=== PATIENT | female | born 1980 | race Caucasian/White ===

== ENCOUNTER 2018-09-01 12:57 | Emergency (ER) | payer OTHER ==
[~2018-09-01] VITALS: Ht 162.6 cm; Wt 96.2 kg
[2018-09-01] MEDS ORDERED: BOTOX100 UNIT IM (13:16)
[2018-09-01] MEDS ORDERED: AIMOVIG AU70 MG/1 ML SUBQ (13:17)
[2018-09-01 13:48] LABS: ABSOLUTE BASOPHILS 0.1 thou/uL (0.0-0.2); ABSOLUTE EOSINOPHILS 0.1 thou/uL (0.0-0.7); ABSOLUTE MONOCYTES 0.3 thou/uL (0.0-1.2); ABSOLUTE NEUTROPHILS 3.9 thou/uL (1.6-8.1); BASOPHILS 0.9 %; EOSINOPHILS 1.8 %; HEMOGLOBIN 13.5 gm/dL (12.0-15.0); LYMPHOCYTES 31.1 %; MCHC 33.7 g/dL (28.0-37.0); MCV 86.1 fL (80.0-100.0); MONOCYTES 4.4 %; MPV 7.5 fl. (7.2-11.1); NUCLEATED RBCS 0 /100WBC; PLATELET COUNT* 302 thou/uL (150-400); POLYS 61.8 %; RBC 4.65 mil/uL (4.20-5.00); RDW-CV 13.5 % (10.5-14.5); WBC 6.4 thou/uL (4.0-11.0)
[2018-09-01 14:00] LABS: APTT 27.3 Seconds (25.0-31.3)
[2018-09-01 14:03] LABS: CALCIUM 9.1 mg/dL (8.5-10.1); CREATININE 0.7 mg/dL (0.6-1.3)
[2018-09-01] MEDS ORDERED: MOBIC15 MG PO (15:30)
[2018-09-01 15:48] VITALS: BP 132/85
== END 2018-09-01 15:50 | disposition home or self-care (01) ==
LOC: M.ERS 12:57
PROVIDERS: Nurse Practitioner Psychiatric/Mental Health
DX: S80.01XA Contusion of right knee, initial encounter (principal); S70.11XA Contusion of right thigh, initial encounter; G43.909 Migraine, unspecified, not intractable, without status migrainosus; Z90.89 Acquired absence of other organs; X58.XXXA Exposure to other specified factors, initial encounter; Y92.89 Other specified places as the place of occurrence of the external cause; Y93.89 Activity, other specified; Y99.8 Other external cause status

== ENCOUNTER 2019-08-16 16:50 | Emergency (ER) | payer OTHER ==
[~2019-08-16] VITALS: Ht 162.6 cm; Wt 104.3 kg
[~2019-08-16 16:50] MED LIST: AIMOVIG AU70 MG/1 ML SUBQ; BOTOX100 UNIT IM; MOBIC15 MG PO
[2019-08-16] MEDS ORDERED: IMITREX4 MG/0.5 M (17:00)
[2019-08-16] MEDS ORDERED: IMITREX 25 MG T25 M1 PO (17:00)
[2019-08-16] MEDS ORDERED: NORCO 5-325 TA1 EAC1 PO (18:10)
[2019-08-16 18:28] VITALS: BP 114/75
== END 2019-08-16 18:29 | disposition home or self-care (01) ==
LOC: M.ERS 16:50
DX: S93.492A Sprain of other ligament of left ankle, initial encounter (principal); G43.909 Migraine, unspecified, not intractable, without status migrainosus; Z90.49 Acquired absence of other specified parts of digestive tract; Z98.890 Other specified postprocedural states; Z88.2 Allergy status to sulfonamides; X50.0XXA Overexertion from strenuous movement or load, initial encounter; Y93.89 Activity, other specified; Y92.89 Other specified places as the place of occurrence of the external cause; Y99.8 Other external cause status

== ENCOUNTER 2019-09-09 12:28 | Emergency (ER) | payer OTHER ==
[~2019-09-09] VITALS: Ht 162.6 cm; Wt 113.4 kg
[~2019-09-09 12:28] MED LIST changes: +IMITREX 25 MG T25 M1 PO; +IMITREX4 MG/0.5 M; +NORCO 5-325 TA1 EAC1 PO
[2019-09-09 13:07] LABS: ABSOLUTE BASOPHILS 0.1 thou/uL (0.0-0.2); ABSOLUTE EOSINOPHILS 0.1 thou/uL (0.0-0.7); ABSOLUTE LYMPHOCYTES 2.2 thou/uL (0.8-5.3); ABSOLUTE MONOCYTES 0.3 thou/uL (0.0-1.2); ABSOLUTE NEUTROPHILS 4.3 thou/uL (1.6-8.1); BASOPHILS 0.8 %; EOSINOPHILS 1.5 %; HEMATOCRIT 38.9 % (37.0-47.0); HEMOGLOBIN 13.1 gm/dL (12.0-15.0); LYMPHOCYTES 32.2 %; MCH 28.5 pg (26.0-34.0); MCHC 33.6 g/dL (28.0-37.0); MCV 84.9 fL (80.0-100.0); MONOCYTES 3.7 %; NUCLEATED RBCS 0 /100WBC; PLATELET COUNT* 278 thou/uL (150-400); POLYS 61.8 %; RBC 4.58 mil/uL (4.20-5.00); RDW-CV 13.8 % (10.5-14.5); WBC 6.9 thou/uL (4.0-11.0)
[2019-09-09 13:17] LABS: CALCIUM 8.4 mg/dL (8.5-10.1); CREATININE 0.9 mg/dL (0.6-1.3); POTASSIUM 3.6 mmol/L (3.5-5.1)
[2019-09-09 13:20] LABS: APTT 26.3 Seconds (25.0-31.3); PROTIME 10.7 Seconds (9.20-11.50)
[2019-09-09 13:31] LABS: ALBUMIN 3.4 g/dL (3.4-5.0); CK-MB MASS 0.9 ng/mL (<0.5-3.6); MAGNESIUM 1.8 mg/dL (1.8-2.4); TOTAL BILIRUBIN 0.4 mg/dL (<0.1-1.0); TOTAL PROTEIN 6.8 g/dL (6.4-8.2)
[2019-09-09 14:04] VITALS: BP 107/67
--- NOTE | 2019-09-11 11:44 | EKG ---
[place] [address] ELECTROCARDIOGRAM REPORT Name: SERGEY CHISHOLM Room: [facility]#: [id number] Admission: 09/09/19 Attend Phys: Discharge: 09/09/19 Date of : 82 Date of Service: 09/09/19 1325 Report #: [id number] THIS REPORT FOR: //name// [facility] ED Test Date: 2019-09-09 Test Time: 13:25:38 Pat Name: SERGEY CHISHOLM Department: Room: Gender: F [employer]: CCD : 1980 Requested By: Basim Pate Order Number: [id number] MD: Harry Chapa Measurements Intervals [place] Rate: 76 P: 38 IA: 178 QRS: 31 QRSD: 100 T: -3 QT: 379 QTc: 427 Interpretive Statements Sinus rhythm Probable left atrial enlargement RSR' in V1 or V2, probably normal variant Borderline T abnormalities, anterior leads No previous ECG available for comparison Electronically Signed On 09-11-2019 11:43:25 CDT by Harry Chapa [email or web address] <ELECTRONICALLY SIGNED> By: Harry Chapa MD, FACC 09/11/19 1143 1325 1325 Harry Chapa MD, FAC /EPI
== END 2019-09-09 14:04 | disposition home or self-care (01) ==
LOC: M.ERS 12:28
PROVIDERS: Family Medicine
DX: G43.909 Migraine, unspecified, not intractable, without status migrainosus (principal); R07.89 Other chest pain; Z90.49 Acquired absence of other specified parts of digestive tract; Z90.721 Acquired absence of ovaries, unilateral; Z88.2 Allergy status to sulfonamides

== ENCOUNTER 2020-09-18 18:29 | Emergency (ER) | payer OTHER ==
[~2020-09-18] VITALS: Ht 157.5 cm; Wt 72.6 kg
[2020-09-18 20:28] LABS: BE -0.9 mmol/L (-2 to +3); PCO2 VENOUS 51.3 mmHg (41.0-51.0); PO2 VENOUS 43.8 mmHg (35.0-45.0)
[2020-09-18] MEDS ORDERED: BUTALB-APAP-CA1 EACH PO (21:21)
[2020-09-18 21:24] VITALS: BP 130/89
== END 2020-09-18 21:21 | disposition home or self-care (01) ==
LOC: M.ERS 18:29
PROVIDERS: Physician Assistant
DX: R55 Syncope and collapse (principal); T59.811A Toxic effect of smoke, accidental (unintentional), initial encounter; G43.909 Migraine, unspecified, not intractable, without status migrainosus; Z90.49 Acquired absence of other specified parts of digestive tract; Z88.2 Allergy status to sulfonamides; Y92.89 Other specified places as the place of occurrence of the external cause

== ENCOUNTER 2020-11-29 12:18 | Emergency (ER) | payer OTHER ==
[~2020-11-29] VITALS: Ht 162.6 cm; Wt 90.7 kg
[~2020-11-29 12:18] MED LIST changes: +BUTALB-APAP-CA1 EACH PO
[2020-11-29 14:11] VITALS: BP 151/70
== END 2020-11-29 14:11 | disposition home or self-care (01) ==
LOC: M.ERS 12:18
DX: S93.492A Sprain of other ligament of left ankle, initial encounter (principal); M25.472 Effusion, left ankle; M79.631 Pain in right forearm; G43.909 Migraine, unspecified, not intractable, without status migrainosus; Z90.49 Acquired absence of other specified parts of digestive tract; Z90.721 Acquired absence of ovaries, unilateral; Z88.2 Allergy status to sulfonamides; W18.39XA Other fall on same level, initial encounter; Y93.89 Activity, other specified; Y92.89 Other specified places as the place of occurrence of the external cause; Y99.8 Other external cause status